=== PATIENT | male | born 1985 | race Caucasian/White ===

== ENCOUNTER 2024-08-27 10:25 | Emergency (ER) | payer BC, SELFPAY ==
[2024-08-27 10:35] VITALS: BP 126/79
[2024-08-27 12:30] VITALS: BMI 22.5
[2024-08-27 12:50] LABS: % Basophils 0.7 % (0-2); % Eosinophils 0.6 % (0-6); % Immature Granulocytes 0.4 % (0-0.5); % Lymphocytes 16.4 % (20.5-51.1); % Monocytes 6.6 % (1.7-9.3); % Neutrophils 75.3 % (42.2-75.2); Absolute Basophils 0.1 10^3/uL (0-0.2); Absolute Eosinophils 0.1 10^3/uL (0-0.7); Absolute Lymphocytes 1.4 10^3/uL (1.2-3.4); Absolute Monocytes 0.6 10^3/uL (0.1-0.6); Absolute Neutrophils 6.4 10^3/uL (1.4-6.5); Hematocrit 47.1 % (39.0-52.0); Hemoglobin 15.9 g/dL (13.0-18.0); Mean Corp Hgb Conc. 33.8 g/dL (33.0-37.0); Mean Corpuscular Hgb 28.1 pg (27.0-31.0); Mean Corpuscular Volume 83.4 fL (80.0-94.0); Mean Platelet Volume 10.2 fL (7.4-10.4); Nucleated Red Blood Cells % 0 % (-); Platelet Count 234 10^3/uL (130-400); Red Blood Cell Count 5.65 10^6/uL (4.70-6.10); White Blood Cell Count 8.5 10^3/uL (4.8-10.8)
[2024-08-27 13:09] LABS: ALT (SGPT) 27 U/L (0-50); AST (SGOT) 25 U/L (17-59); Albumin 4.9 g/dl (3.5-5.0); Alkaline Phosphatase 64 U/L (38-126); Blood Urea Nitrogen 14 mg/dl (9-20); Calcium 9.7 mg/dl (8.4-10.2); Carbon Dioxide 29 mmol/L (22-30); Chloride 106 mmol/L (98-107); Estimated Creatinine Clearance 110 ml/min; Glucose 101 mg/dl (70-99); Potassium 4.9 mmol/L (3.5-5.1); Sodium 143 mmol/L (135-145); Total Protein 7.2 g/dl (6.3-8.2); eGFR > 60.00
[2024-08-27 13:12] LABS: C-Reactive Protein < 5.00 mg/L (0.0-10.00)
--- NOTE | 2024-08-27 13:56 | ED.GENMED ---
History of Present Illness
General
Chief Complaint: Headache
Source: patient
Exam Limitations: none
Time Seen by Provider: 08/27/24 12:00
History of Present Illness
History of Present Illness:
38-year-old male presents complaining of headache worsening typically in the mornings has been persistent over the past week. Is worse with lying down. The headache is typically in the front of his head and sometimes on the left. No associated
vision change double vision blurry vision loss of vision. No fever. No neck pain. No chest pain or shortness of breath. Occasionally feels dizzy or lightheaded with this. No rash or tick bites. He does not typically get headaches. No known
sick contacts. No other complaints at this time
Phy Exam
Physical Exam
Physical Exam:
General: Well-appearing male no acute respiratory distress
HEENT: Normocephalic atraumatic
Heart: Regular rate and rhythm no murmurs
Lungs: Clear no wheeze
Neurologic exam: Finger-nose intact [id number] intact negative Meridian-Hallpike conversing appropriately and no dysarthria or aphasia.
Musculoskeletal exam: Spine is full range of motion is nontender
Course
Orders/Labs/Results
Orders:
Orders
08/27/24 12:24
CT Head W/o Iv Contrast Urgent
Comment:
Reason For Exam: headache
08/27/24 12:37
CRP [C-Reactive Protein] Urgent
Complete Blood Count/With Diff Urgent
Comprehensive Metabolic Panel Urgent
Lyme Progressive Urgent
Sed Rate [Erythrocyte Sed Rate] Urgent
Abnormal Lab Results
08/27/24
12:37
Neutrophils % 75.3 H %
(42.2-75.2)
Lymphocytes % 16.4 L %
(20.5-51.1)
Glucose 101 H mg/dl
(70-99)
08/27/24 12:37
08/27/24 12:37
Vital Signs
Initial and Last Documented VS:
Initial Vital Signs
Temp Pulse Resp BP Pulse Ox
97.2 F 72 18 126/79 99
08/27/24 10:35 08/27/24 10:35 08/27/24 10:35 08/27/24 10:35 08/27/24 10:35
Last Documented Vital Signs
Temp Pulse Resp BP Pulse Ox
97.2 F 72 18 126/79 99
08/27/24 10:35 08/27/24 10:35 08/27/24 10:35 08/27/24 10:35 08/27/24 10:35
MDM/Problems Addressed
Differential Diagnosis Includes:
Daily headaches. Consider tension headache versus migraine will order CT of head to evaluate for any space-occupying lesion or bleeding. Check labs. Overall patient does look nontoxic
*Critical Care Note
Total Time (30-74mins, 75-104mins- exclusive of procedures): Not Applicable
Update Note
Update Note:
CT head negative. Patient reassured. Recommended continue use of ibuprofen or Tylenol with ample amounts of hydration at home. Also recommended follow-up with family doctor. Stable for discharge
ED Attending Note
-
Portions of this chart may have been created with voice recognition software.� Occasional wrong word or��sound alike� substitutions may have occurred due to the inherent limitations of voice recognition software.
Discharge Plan
Departure
Patient Disposition: Home (Routine Discharge)
Date of Disposition: 08/27/24
Time of Disposition: 15:28
Patient with high blood pressure during this ER visit?: No
Discharge Problem:
Headache
Instructions: Headache, Adult (DC)
Referrals:
Susan Georges MD [Family Provider] -
Activity Restrictions/Additional Instructions:
Stay hydrated. Use ibuprofen or Tylenol for headaches. Turn if worse otherwise follow-up with your doctor
Interventions
Interventions:
*Risk Screen - Suicide Last Done: 08/27/24 10:35
*General Assessment Last Done: 08/27/24 10:35
*Neglect/Abuse Screening Last Done: 08/27/24 10:35
*ED COVID-19 Vaccine History Last Done: 08/27/24 14:19
ED- Neurological Assessment Last Done: 08/27/24 14:56
Discharge Date and Time
Print Language: ZAMBIAN
[2024-08-27 14:06] LABS: Erythrocyte Sed Rate 8 mm/hour (0-20)
[2024-08-27 15:36] VITALS: BP 129/67
[2024-08-27 16:24] VITALS: BP 129/67
[2024-08-30 16:17] LABS: Lyme Antibody Screen, EIA Negative (Negative)
== END 2024-08-27 16:00 | disposition home or self-care (01) ==
LOC: EMR 10:25
PROVIDERS: Physician Assistant; EMERGENCY PHYSICIAN Student in an Organized Health Care Education/Training Program; FAMILY PHYSICIAN Internal Medicine
DX: R51.9 Headache, unspecified (principal); R42 Dizziness and giddiness
CPT/HCPCS: 99284; 70450; 80053; 85025; 85652; 86140; 86618

== ENCOUNTER 2025-05-04 21:30 | Emergency (ER) | payer SELFPAY ==
[2025-05-04 21:33] VITALS: BP 133/106
[2025-05-04 23:47] VITALS: BMI 23.7
[2025-05-05 00:13] VITALS: BP 128/87
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
== END 2025-05-05 01:02 | disposition home or self-care (01) ==
LOC: EMR 21:30
PROVIDERS: EMERGENCY PHYSICIAN Student in an Organized Health Care Education/Training Program; FAMILY PHYSICIAN Internal Medicine
DX: M43.6 Torticollis (principal); M79.632 Pain in left forearm; V43.53XA Car driver injured in collision with pick-up truck in traffic accident, initial encounter
CPT/HCPCS: 99282